=== PATIENT | female | born 1980 | race Caucasian/White ===

== ENCOUNTER 2019-09-05 13:47 | Emergency (ER) | payer SELFPAY ==
[~2019-09-05] VITALS: Ht 165.1 cm; Wt 95.7 kg
[2019-09-05 14:43] VITALS: BP 127/61
[2019-09-05] MEDS ORDERED: CLON0.3T PO (14:56)
--- NOTE | 2019-09-05 14:56 | PHYS DOC ---
Past Medical History Past Medical History: Anxiety, Hypertension Adult General Chief Complaint Chief Complaint: DIZZY/LIGHT HEADED HPI HPI Patient is a 38 year old female with history of hypertension and anxiety who presents with complaint of dizziness and ran out of blood pressure medication. Patient [place] and lost the bottle of Clonidine 0.3 mg that she is supposed to take 3 times a day and didn't take any since yesterday. Patient states she felt dizziness with standing up and had 1 episode of loose stool this morning and thought maybe her blood pressure is elevated but didn't check her blood pressure. Patient denies vomiting, focal neuro deficit, chest pain, shortness of breath. She states she called her primary care physician office but was not able to contact her physician. Review of Systems Review of Systems Constitutional: Denies fever or chills [] Eyes: Denies change in visual acuity, redness, or eye pain [] HENT: Denies nasal congestion or sore throat [] Respiratory: Denies cough or shortness of breath [] Cardiovascular: No additional information not addressed in HPI [] GI: Denies abdominal pain, nausea, vomiting, bloody stools, reports diarrhea [] : Denies dysuria or hematuria [] Musculoskeletal: Denies back pain or joint pain [] Integument: Denies rash or skin lesions [] Neurologic: Denies headache, focal weakness or sensory changes [] Endocrine: Denies polyuria or polydipsia [] All other systems were reviewed and found to be within normal limits, except as documented in this note. Physical Exam Physical Exam Constitutional: Well developed, well nourished, mild distress, non-toxic appearance. [] HENT: Normocephalic, atraumatic. Eyes: PERRLA, EOMI, conjunctiva normal, no discharge. [] Neck: Normal range of motion, no tenderness, supple, no stridor. [] Cardiovascular:Heart rate regular rhythm, no murmur [] Lungs & Thorax: Bilateral breath sounds clear to auscultation [] Abdomen: Bowel sounds normal, soft, no tenderness, no masses, no pulsatile masses. [] Skin: Warm, dry, no erythema, no rash. [] Back: No tenderness, no CVA tenderness. [] Extremities: No tenderness, no cyanosis, no clubbing, ROM intact, no edema. [] Neurologic: Alert and oriented X 3, no focal deficits noted. [] Psychologic: Affect normal, judgement normal, mood normal. [] EKG EKG [] Radiology/Procedures Radiology/Procedures [] Course & Med Decision Making Course & Med Decision Making Evaluation of patient in ER showed 38-year-old male patient presented to ER with complaining of loss of blood pressure medication and needs refill of medication. Blood pressure of 127/80 and heart rate of 73 with unremarkable physical exam. Prescription for creatinine was given and patient was advised to follow-up with her primary care physician. I've spoken with the patient and/or caregivers. I've explained the patient's condition, diagnosis and treatment plan based on information available to me at this time. I've answered the patient's and/or caregivers questions and addressed any concerns. The patient and/or caregivers have a good understanding the patient's diagnosis, condition and treatment plan as can be expected at this point. Vital signs have been stabilized. The patient's condition is stable for discharge from the emergency department. The patient will pursue further outpatient evaluation with her primary care provider or other designated consulting physician as outlined in the discharge instructions. Patient and/or caregivers are agreeable to this plan of care and follow-up instructions have been explained in detail. The patient and/or caregivers have received these instructions in written format and expressed understanding of these discharge instructions. The patient and her caregivers are aware that if any significant change in condition or worsening of symptoms should prompt him to immediately return to this of the closest emergency department. If an emergent department is not readily available I would encourage him to call 911. Ingrid Disclaimer Kennyon Disclaimer This electronic medical record was generated, in whole or in part, using a voice recognition dictation system. Departure Departure Impression: Primary Impression: Medication refill Additional Impression: Dizziness Disposition: HOME, SELF-CARE (at 1453) Condition: STABLE Referrals: NO PCP (PCP) Patient Instructions: Medication Refill, Emergency Department Additional Instructions: Drink plenty of liquids Follow-up with your primary care physician in 2-3 days for refill of medication Return to ER if not getting better Scripts Clonidine Hcl (CLONIDINE HCL) 0.3 Mg Tablet 1 TAB PO TID, #30 TAB 2 Refills Prov: CONRAD COLLADO MD 09/05/19 Problem Qualifiers CONRAD COLLADO MD Sep 05, 2019 14:56
--- NOTE | 2019-09-06 07:32 | EKG ---
[facility] [address] [place] [address] Test Date: 2019-09-05 Test Time: 14:37:41 Pat Name: VIVIENNE DONOVAN Department: Room: Gender: F Ways Operator: : 1980 Requested By: CONRAD COLLADO Order Number: [id number] Reading MD: Measurements Intervals [place] Rate: 73 P: 12 RI: 144 QRS: 34 QRSD: 76 T: 31 QT: 460 QTc: 511 Interpretive Statements SINUS RHYTHM ST & T ABNORMALITY, CONSIDER RECENT INFERIOR MYOCARDIAL OR PERICARDIAL DAMAGE PROLONGED QT ABNORMAL ECG RI6.01 No previous ECG available for comparison
== END 2019-09-05 15:07 | disposition home or self-care (01) ==
LOC: ER 13:47
DX: R42 Dizziness and giddiness (principal); R19.7 Diarrhea, unspecified; Z76.0 Encounter for issue of repeat prescription; F41.9 Anxiety disorder, unspecified; I10 Essential (primary) hypertension
CPT/HCPCS: 93005; 99283

== ENCOUNTER 2021-01-23 17:46 | Emergency (ER) | payer SELFPAY ==
[~2021-01-23] VITALS: Ht 165.1 cm; Wt 103.5 kg
[~2021-01-23 17:46] MED LIST: AMLO-187 PO; CITA40TA5 PO; CLON0.1T PO; CLON0.3T PO; LORA-434 PO
[2021-01-23 20:48] LABS: BILIRUBIN,URINE MODERATE (NEG); CLARITY,URINE CLOUDY; COLOR,URINE RED; NITRITE,URINE POSITIVE (NEG); PROTEIN,URINE >=300 mg/dL (NEG-TRACE)
[2021-01-23 20:56] LABS: BARBITURATES NEG (NEG); BENZODIAZEPINES POS (NEG); CANNABINOIDS NEG (NEG); COCAINE NEG (NEG); METHADONE NEG (NEG); OPIATES NEG (NEG); PHENCYCLIDINE NEG (NEG); RBC,URINE TNTC /HPF (0-2)
[2021-01-23 20:57] LABS: AMPHETAMINE/METHAMPHETAMINE POS (NEG); BACTERIA,URINE MODERATE /HPF (0-FEW)
[2021-01-23 22:09] LABS: BASO # 0.1 x10^3/uL (0.0-0.2); BASO % 1 % (0-3); EOS # 0.3 x10^3/uL (0.0-0.7); EOS % 4 % (0-3); HEMATOCRIT 32.8 % (36.0-47.0); HEMOGLOBIN 11.2 g/dL (12.0-15.5); LYMPH # 2.7 x10^3/uL (1.0-4.8); LYMPH % 34 % (24-48); MEAN CORPUSCULAR HEMOGLOBIN 29 pg (25-35); MEAN CORPUSCULAR HGB CONC 34 g/dL (31-37); MEAN CORPUSCULAR VOLUME 85 fL (79-100); MONO # 0.4 x10^3/uL (0.0-1.1); MONO % 6 % (0-9); NEUT # 4.3 x10^3/uL (1.8-7.7); NEUT % 55 % (31-73); PLATELET COUNT 242 x10^3/uL (140-400); RED BLOOD COUNT 3.86 x10^6/uL (3.50-5.40); RED CELL DISTRIBUTION WIDTH 15.9 % (11.5-14.5); WHITE BLOOD COUNT 7.8 x10^3/uL (4.0-11.0)
[2021-01-23 22:15] LABS: CALCIUM 8.4 mg/dL (8.5-10.1); GFR 61.1; POTASSIUM 3.3 mmol/L (3.5-5.1)
[2021-01-23 22:20] LABS: ALBUMIN 3.5 g/dL (3.4-5.0); ALBUMIN/GLOBULIN RATIO 1.4 (1.0-1.7); TOTAL BILIRUBIN 0.4 mg/dL (0.2-1.0)
[2021-01-23 22:24] LABS: ACETAMIN < 2 mcg/ml (10-30); ETHANOL < 10 mg/dL (0-10); SALIC 3.8 mg/dL (2.8-20.0)
[2021-01-23] MEDS ORDERED: cefTRIAXone IM 1 GM VIAL IM ONE (22:30)
[2021-01-23] MEDS ORDERED: POTASSIUM CHLORIDE 20 MEQ TABLET.ER. PO ONE (22:30)
[2021-01-23] MEDS ORDERED: LIDOCAINE 1% PF 2 ML VIAL. INJ ONE (22:30)
--- NOTE | 2021-01-23 23:10 | PHYS DOC ---
Past Medical History Past Medical History: Anxiety, Depression, DVT, Hypertension, Pancreatitis, Other Additional Past Medical Histor: SI/OD (FRANKMagdalenaALLEN Mckinney MANAGER HEMATOLOGY) Past Surgical History: Cholecystectomy, , Tubal ligation (ALEJANDROALLEN MANAGER HEMATOLOGY) Smoking Status: Current Every Day Smoker Additional Information: 1 PPD Alcohol Use: Heavy (ALEJANDROALLEN Mckinney MANAGER HEMATOLOGY) General Adult EDM: Chief Complaint: ANXIETY/PANIC ATTACK HPI: HPI: Patient is a 40 year old female with history of anxiety, depression, hypertension, hepatitis, who presents to the ED today via EMS from [facility], patient states she was at [facility] when they called the police on her and she was escorted out of [facility]. Patient states she is notoriously known at [facility] for spending long hours in the store, returning items that are not has or stealing. Patient states she has people stalking her. Patient stated this people hired men by the ex boyfriend. Patient says the follow-up from place to place that she has to switch places she lives. She states currently she is homeless and has been living in hotels and she is tired of it. She states she is suicidal and her plan is to jump off a bridge. She states she is very anxious. Denies any homicidal ideations (ALLEN ALLEN MANAGER HEMATOLOGY) Review of Systems: Review of Systems: Constitutional: Denies fever or chills. [] Eyes: Denies change in visual acuity. [] HENT: Denies nasal congestion or sore throat. [] Respiratory: Denies cough or shortness of breath. [] Cardiovascular: Denies chest pain or edema. [] GI: Denies abdominal pain, nausea, vomiting, bloody stools or diarrhea. [] : Denies dysuria. [] Musculoskeletal: Denies back pain or joint pain. [] Integument: Denies rash. [] Neurologic: Denies headache, focal weakness or sensory changes. [] Psychiatric: Reports anxiety, hallucinations (FRANKALLEN Nichols MANAGER HEMATOLOGY) Heart Score: C/O Chest Pain: N/A Risk Factors: Risk Factors: DM, Current or recent (<one month) smoker, HTN, HLP, family history of CAD, obesity. Risk Scores: Score 0 - 3: 2.5% MACE over next 6 weeks - Discharge Home Score 4 - 6: 20.3% MACE over next 6 weeks - Admit for Clinical Observation Score 7 - 10: 72.7% MACE over next 6 weeks - Early Invasive Strategies (ALLEN ALLEN MANAGER HEMATOLOGY) Current Medications: Current Medications Medications (Trade) Dose Ordered Sig/Sheri Start Time Stop Time Status Last Admin Dose Admin Ceftriaxone Sodium (Rocephin Im) 1 gm 1X ONCE 01/23/21 22:30 01/23/21 22:31 DC 01/23/21 22:33 1 GM Lidocaine HCl (Xylocaine-Mpf 1% 2ml Vial) 2 ml 1X ONCE 01/23/21 22:30 01/23/21 22:31 DC 01/23/21 22:34 2 ML Potassium Chloride (Klor-Con) 40 meq 1X ONCE 01/23/21 22:30 01/23/21 22:31 DC 01/23/21 22:33 40 MEQ (ALLEN ALLEN M MANAGER HEMATOLOGY) Allergies: Allergies: Allergies Coded Allergies Type Severity Reaction Last Updated Verified No Known Drug Allergies 10/21/19 No (ALLEN ALLEN M MANAGER HEMATOLOGY) Physical Exam: PE: Constitutional: Well developed, well nourished, no acute distress, non-toxic appearance. [] HENT: Normocephalic, atraumatic, bilateral external ears normal, oropharynx moist, no oral exudates, nose normal. [] Eyes: PERRLA, EOMI, conjunctiva normal, no discharge. [] Neck: Normal range of motion, no tenderness, supple, no stridor. [] Cardiovascular:Heart rate regular rhythm, no murmur [] Lungs & Thorax: Bilateral breath sounds clear to auscultation [] Abdomen: Bowel sounds normal, soft, no tenderness, no masses, no pulsatile masses. [] Skin: Warm, dry, no erythema, no rash. [] Back: No tenderness, no CVA tenderness. [] Extremities: No tenderness, no cyanosis, no clubbing, ROM intact, no edema. [] Neurologic: Alert and oriented X 3, normal motor function, normal sensory function, no focal deficits noted. [] Psychologic: Flat affect, speaking very fast (ALLEN ALLEN M MANAGER HEMATOLOGY) Current Patient Data: Labs: Laboratory Tests Test 01/23/21 20:42 6/9/21 21:45 Urine Collection Type Unknown Urine Color Red Urine Clarity Cloudy Urine pH 5.0 (<5.0-8.0) Urine Specific [place] >=1.030 (1.000-1.030) Urine Protein >=300 mg/dL (NEG-TRACE) Urine Glucose (UA) Negative mg/dL (NEG) Urine Ketones (Stick) 15 mg/dL (NEG) Urine Blood Large (NEG) Urine Nitrite Positive (NEG) Urine Bilirubin Moderate (NEG) Urine Urobilinogen Dipstick 1.0 mg/dL (0.2 mg/dL) Urine Leukocyte Esterase Moderate (NEG) Urine RBC Tntc /HPF (0-2) Urine WBC 11-20 /HPF (0-4) Urine Squamous Epithelial Cells Many /LPF Urine Bacteria Moderate /HPF (0-FEW) Urine Mucus Marked /LPF Urine Opiates Screen Neg (NEG) Urine Methadone Screen Neg (NEG) Urine Barbiturates Neg (NEG) Urine Phencyclidine Screen Neg (NEG) Urine Amphetamine/Methamphetamine Pos (NEG) Urine Benzodiazepines Screen Pos (NEG) Urine Cocaine Screen Neg (NEG) Urine Cannabinoids Screen Neg (NEG) Urine Ethyl Alcohol Neg (NEG) White Blood Count 7.8 x10^3/uL (4.0-11.0) Red Blood Count 3.86 x10^6/uL (3.50-5.40) Hemoglobin 11.2 g/dL (12.0-15.5) L Hematocrit 32.8 % (36.0-47.0) L Mean Corpuscular Volume 85 fL (79-100) Mean Corpuscular Hemoglobin 29 pg (25-35) Mean Corpuscular Hemoglobin Concent 34 g/dL (31-37) Red Cell Distribution Width 15.9 % (11.5-14.5) H Platelet Count 242 x10^3/uL (140-400) Neutrophils (%) (Auto) 55 % (31-73) Lymphocytes (%) (Auto) 34 % (24-48) Monocytes (%) (Auto) 6 % (0-9) Eosinophils (%) (Auto) 4 % (0-3) H Basophils (%) (Auto) 1 % (0-3) Neutrophils # (Auto) 4.3 x10^3/uL (1.8-7.7) Lymphocytes # (Auto) 2.7 x10^3/uL (1.0-4.8) Monocytes # (Auto) 0.4 x10^3/uL (0.0-1.1) Eosinophils # (Auto) 0.3 x10^3/uL (0.0-0.7) Basophils # (Auto) 0.1 x10^3/uL (0.0-0.2) Sodium Level 143 mmol/L (136-145) Potassium Level 3.3 mmol/L (3.5-5.1) L Chloride Level 108 mmol/L (98-107) H Carbon Dioxide Level 24 mmol/L (21-32) Anion Gap 11 (6-14) Blood Urea Nitrogen 12 mg/dL (7-20) Creatinine 1.0 mg/dL (0.6-1.0) Estimated GFR (Cockcroft-Gault) 61.1 BUN/Creatinine Ratio 12 (6-20) Glucose Level 127 mg/dL (70-99) H Calcium Level 8.4 mg/dL (8.5-10.1) L Total Bilirubin 0.4 mg/dL (0.2-1.0) Aspartate Amino Transferase (AST) 19 U/L (15-37) Alanine Aminotransferase (ALT) 31 U/L (14-59) Alkaline Phosphatase 60 U/L (46-116) Total Protein 6.0 g/dL (6.4-8.2) L Albumin 3.5 g/dL (3.4-5.0) Albumin/Globulin Ratio 1.4 (1.0-1.7) Lipase 54 U/L (73-393) L Salicylates Level 3.8 mg/dL (2.8-20.0) Salicylate Last Dose Date Salicylate Last Dose Time Acetaminophen Level < 2 mcg/ml (10-30) L Acetaminophen Last Dose Date Acetaminophen Last Dose Time Ethyl Alcohol Level < 10 mg/dL (0-10) SARS-CoV-2 Antigen (Rapid) Negative (NEGATIVE) Laboratory Tests 01/23/21 21:45 Laboratory Tests 01/23/21 21:45 Vital Signs: Vital Signs Date Time Temp Pulse Resp B/P (MAP) Pulse Ox O2 Delivery O2 Flow Rate FiO2 01/23/21 19:54 82 16 113/58 (76) 100 Room Air 01/23/21 19:28 98.7 98.7 (ALLEN ALLEN APRN) EKG: EKG: [] (ALLEN ALLEN APRN) Radiology/Procedures: Radiology/Procedures: [] (ALLEN ALLEN APRN) Course & Med Decision Making: Course & Med Decision Making Pertinent Labs and Imaging studies reviewed. (See chart for details) This is a 40-year-old female patient presenting to the ED today with anxiety, suicidal ideations, hallucinations. See HPI. CBC with no acute findings, CMP with potassium of 3.3, oral potassium replacement given in the ED. UA positive for UTI, given Rocephin. Dyllan from the Pat team working on patient placement. Patient has been on one-to-one since arrival to the ED [address] Gamez (ALLEN ALLEN APRN) Dragon Disclaimer: Ingrid Disclaimer: This electronic medical record was generated, in whole or in part, using a voice recognition dictation system. (ALLEN ALLEN APRN) Departure Departure Impression: Primary Impression: Anxiety Additional Impressions: Hallucinations Suicidal ideations [facility] Condition: STABLE Referrals: NO PCP (PCP) ALLEN ALLEN APRN Jan 23, 2021 23:10 GOYO GAMEZ MD Jan 26, 2021 06:36
[2021-01-24 03:25] VITALS: BP 122/69
--- NOTE | 2021-01-24 15:44 | NUR ---
IP: Attempted to contact pt concerning covid test. No answer, left a voicemail to return the call.
== END 2021-01-24 04:37 ==
LOC: ER 17:46 → EEVIPCON 17:46 → ER 01-24 04:37
DX: R45.851 Suicidal ideations (principal); Z20.822 Contact with and (suspected) exposure to COVID-19; F41.9 Anxiety disorder, unspecified; R44.3 Hallucinations, unspecified; F10.20 Alcohol dependence, uncomplicated; Y90.0 Blood alcohol level of less than 20 mg/100 ml; I10 Essential (primary) hypertension; Z86.718 Personal history of other venous thrombosis and embolism; F17.200 Nicotine dependence, unspecified, uncomplicated; Z59.0 Homelessness
CPT/HCPCS: 80053; 80307; 80329; 81001; 83690; 85025; 87086; 87426; 96372; 99285; G0480; J0696; J3490; U0003; U0005

== ENCOUNTER 2021-07-16 12:36 | Emergency (ER) | payer SELFPAY ==
[~2021-07-16] VITALS: Ht 165.1 cm; Wt 95.5 kg
[~2021-07-16 12:36] MED LIST changes: -CITA40TA5 PO; +CITA40TA6 PO
[2021-07-16] MEDS: IV NORMAL SALINE 1000ML BAG 1,000 ML IV ONE (13:27)
[2021-07-16] MEDS: ONDANSETRON PF 4 MG/2 ML VIAL. IVP ONE (13:27)
[2021-07-16 13:28] LABS: BASO # 0.1 x10^3/uL (0.0-0.2); BASO % 1 % (0-3); EOS # 0.1 x10^3/uL (0.0-0.7); EOS % 1 % (0-3); HEMATOCRIT 39.1 % (36.0-47.0); HEMOGLOBIN 12.7 g/dL (12.0-15.5); LYMPH # 1.3 x10^3/uL (1.0-4.8); LYMPH % 11 % (24-48); MEAN CORPUSCULAR HEMOGLOBIN 27 pg (25-35); MEAN CORPUSCULAR HGB CONC 32 g/dL (31-37); MEAN CORPUSCULAR VOLUME 83 fL (79-100); MONO # 0.4 x10^3/uL (0.0-1.1); MONO % 3 % (0-9); NEUT % 84 % (31-73); PLATELET COUNT 319 x10^3/uL (140-400); RED BLOOD COUNT 4.72 x10^6/uL (3.50-5.40); RED CELL DISTRIBUTION WIDTH 19.4 % (11.5-14.5); WHITE BLOOD COUNT 11.9 x10^3/uL (4.0-11.0)
[2021-07-16] MEDS: cloNIDine HCL 0.1 MG TABLET PO ONE (13:28)
[2021-07-16 13:36] LABS: CALCIUM 9.2 mg/dL (8.5-10.1); GFR 61.1; POTASSIUM 3.9 mmol/L (3.5-5.1)
[2021-07-16 13:36] LABS: INFLUENZA A PATIENT NEGATIVE (NEGATIVE); INFLUENZA B PATIENT NEGATIVE (NEGATIVE)
[2021-07-16 13:41] LABS: ALBUMIN 3.9 g/dL (3.4-5.0); ALBUMIN/GLOBULIN RATIO 1.1 (1.0-1.7); TOTAL BILIRUBIN 1.3 mg/dL (0.2-1.0); TOTAL PROTEIN 7.4 g/dL (6.4-8.2)
--- NOTE | 2021-07-16 13:44 | PHYS DOC ---
Past Medical History Past Medical History: Anxiety, Depression, DVT, Hypertension, Pancreatitis, Other Additional Past Medical Histor: SI/OD Past Surgical History: Cholecystectomy, , Tubal ligation Smoking Status: Current Every Day Smoker Alcohol Use: None General Adult EDM: Chief Complaint: NAUSEA/VOMITING/DIARRHEA HPI: HPI: Patient is a 40-year-old female who presents to the emergency department complaining of being out of her blood pressure medication clonidine 0.2 mg which she takes 3 times a day. Patient is requesting a refill of her medication for blood pressure. Patient states she has been out of her medication for 2 days. Denies chest pains, shortness of breath, chest palpitations, headaches, nasal or chest congestion. Patient also states she is homeless and would like to rest in the emergency department for a while claiming she has had nausea without vomiting today reports several diarrhea spells with loose brown stool, denies seeing any blood in her stool or in her urine. Patient denies receiving the full Covid vaccine series, reports she took the first dose of Pfizer about 2 months ago but never followed up for second dose. Patient denies receiving the flu vaccine for this year. Patient denies abdominal pain, patient describes abdominal feelings of fullness. Patient denies fever or chills. Patient reports her last diarrhea spell was approximately 1 hour prior to arrival. Patient reports she does smoke cigarettes, denies alcohol use however does report methamphetamine use, reports she snorted some methamphetamine yesterday evening to help her sleep. Patient denies vaginal discharge, increased urinary frequency, denies urinary pressure, denies STI concerns. Patient denies other physical complaints or physical concerns. Review of Systems: Review of Systems: 14 body systems of review of systems have been reviewed. See HPI for pertinent positives and negative responses, otherwise all other systems are negative, nonpertinent or noncontributory. Constitutional: Negative except as outlined in HPI above. Skin: Negative except as outlined in HPI above. Eyes: Negative except as outlined in HPI above. HENT: Negative except as outlined in HPI above. Respiratory: Negative except as outlined in HPI above. Cardiovascular: Negative except as outlined in HPI above. GI: Negative except as outlined in HPI above. : Negative except as outlined in HPI above. Musculoskeletal: Negative except as outlined in HPI above. Integument: Negative except as outlined in HPI above. Neurologic: Negative except as outlined in HPI above. Endocrine: Negative except as outlined in HPI above. Lymphatic: Negative except as outlined in HPI above. Psychiatric: Negative except as outlined in HPI above. Heart Score: C/O Chest Pain: No Risk Factors: Risk Factors: DM, Current or recent (<one month) smoker, HTN, HLP, family history of CAD, obesity. Risk Scores: Score 0 - 3: 2.5% MACE over next 6 weeks - Discharge Home Score 4 - 6: 20.3% MACE over next 6 weeks - Admit for Clinical Observation Score 7 - 10: 72.7% MACE over next 6 weeks - Early Invasive Strategies Current Medications: Current Medications Medications (Trade) Dose Ordered Sig/Sheri Start Time Stop Time Status Last Admin Dose Admin Clonidine HCl (Catapres) 0.2 mg 1X ONCE 07/16/21 13:00 07/16/21 13:01 DC 07/16/21 13:28 0.2 MG Ondansetron HCl (Zofran) 4 mg 1X ONCE 07/16/21 13:00 07/16/21 13:01 DC 07/16/21 13:27 4 MG Sodium Chloride 1,000 ml @ 1,000 mls/hr 1X ONCE 07/16/21 13:00 07/16/21 13:59 07/16/21 13:27 1,000 MLS/HR Allergies: Allergies: Allergies Coded Allergies Type Severity Reaction Last Updated Verified No Known Drug Allergies 10/21/19 No Physical Exam: PE: Constitutional: Well developed, well nourished, no acute distress, non-toxic appearance. 40-year-old female in no apparent distress. HENT: Normocephalic, atraumatic. Eyes: Conjunctiva normal, no discharge. Neck: Normal range of motion, no stridor. Cardiovascular: No cyanosis appreciated, distal cap refill less than 2 seconds. Lungs & Thorax: Patient is in no respiratory distress, no audible adventitious lung sounds appreciated. Abdomen: Nontender, no abnormalities noted. Skin: Warm, dry, no erythema, no rash. Back: No tenderness, no deformities. Extremities: No tenderness, no cyanosis, no clubbing, ROM intact, no edema. Neurologic: Alert and oriented X 3, normal motor function, normal sensory function, no focal deficits noted. Psychologic: Affect normal, judgement normal, mood normal. Current Patient Data: Labs: Laboratory Tests Test 07/16/21 13:05 07/16/21 13:15 SARS-CoV-2 Antigen (Rapid) Negative (NEGATIVE) White Blood Count 11.9 x10^3/uL (4.0-11.0) H Red Blood Count 4.72 x10^6/uL (3.50-5.40) Hemoglobin 12.7 g/dL (12.0-15.5) Hematocrit 39.1 % (36.0-47.0) Mean Corpuscular Volume 83 fL (79-100) Mean Corpuscular Hemoglobin 27 pg (25-35) Mean Corpuscular Hemoglobin Concent 32 g/dL (31-37) Red Cell Distribution Width 19.4 % (11.5-14.5) H Platelet Count 319 x10^3/uL (140-400) Neutrophils (%) (Auto) 84 % (31-73) H Lymphocytes (%) (Auto) 11 % (24-48) L Monocytes (%) (Auto) 3 % (0-9) Eosinophils (%) (Auto) 1 % (0-3) Basophils (%) (Auto) 1 % (0-3) Neutrophils # (Auto) 10.0 x10^3/uL (1.8-7.7) H Lymphocytes # (Auto) 1.3 x10^3/uL (1.0-4.8) Monocytes # (Auto) 0.4 x10^3/uL (0.0-1.1) Eosinophils # (Auto) 0.1 x10^3/uL (0.0-0.7) Basophils # (Auto) 0.1 x10^3/uL (0.0-0.2) Laboratory Tests 07/16/21 13:15 Vital Signs: Vital Signs Date Time Temp Pulse Resp B/P (MAP) Pulse Ox O2 Delivery O2 Flow Rate FiO2 07/16/21 13:28 66 175/79 07/16/21 13:10 20 100 Room Air 07/16/21 12:40 97.5 97.5 EKG: EKG: [] Radiology/Procedures: Radiology/Procedures: [] Course & Med Decision Making: Course & Med Decision Making And wrappedPertinent Labs and Imaging studies reviewed. (See chart for details) 40-year-old female, vital signs reviewed, presents to the emergency department concerning needing a refill for her blood pressure medication clonidine. Patient also reports she is homeless and would like somewhere to sleep for a while. Patient then went on to report nausea without vomiting, diarrhea spells this morning without blood in her stool and without abdominal pain. Patient's blood pressure reviewed, 217/89, will give patient's home dose of clonidine 0.2 mg p.o. Will start saline lock IV, 1 L normal saline, 4 mg Zofran for reported nausea, CBC, CMP, lipase. Urinalysis assay with test. Rapid COVID-19 testing with PCR, rapid flu testing. Patient does not have abdominal pain or discomfort, will defer imaging at this time pending lab results. Patient's rapid Covid testing flu testing negative, PCR testing pending, blood pressure after p.o. clonidine given, 191/78, patient's CBC is CMP labs along with lipase unremarkable, no vomiting or diarrhea during ER stay, patient reports ongoing nausea, will give ODT Zofran prior to discharge, discussed with patient staying well-hydrated, will prescribe 30-day supply of blood pressure medication, short supply nausea medicine, strict follow-up with primary care soon for ongoing blood pressure management, return ER precautions and concerns, patient gave verbal understanding of and is amenable to ED discharge planning. Diagnosis encounter for medication refill, nausea. Hypertension. Discussed with the patient all findings and diagnostic testing as well as the need to follow-up with their primary care provider for further evaluation and treatment or return to the ED if any new or worsening symptoms. Strict return precautions were also discussed at length, the patient voiced understanding and agreement with the discharge planning. The patient was nontoxic in appearance, in no apparent distress, and hemodynamically stable at the time of disposition. Dragon Disclaimer: [employer] Disclaimer: This electronic medical record was generated, in whole or in part, using a voice recognition dictation system. Departure Departure Impression: Primary Impression: Prescription refill Additional Impressions: Hypertension Qualified Codes: I10 - Essential (primary) hypertension Nausea Disposition: HOME / SELF CARE / HOMELESS Condition: GOOD Referrals: NO PCP (PCP) Patient Instructions: Hypertension, Nausea, Adult Additional Instructions: You were seen today in the emergency department for a prescription refill of her clonidine. You also complained of nausea and diarrhea, you did not have any vomiting or diarrhea during your ER stay, you were treated with 1 L of normal saline along with Zofran for nausea. He had reported relief with this, you are also given 0.2 mg of clonidine for your hypertension presentation. Your blood pressure did decrease during your ER stay, I am prescribing you 1 months worth of blood pressure medication and a few Zofran for any returning nausea. Please follow-up with your primary care physician soon for ongoing blood pressure management. Return to the emergency department for worsening symptoms or other concerns. Thank you for visiting our Emergency Department. It was a pleasure taking care of you today in the emergency department and we appreciate you trusting us with your care. If any additional problems come up don't hesitate to return to visit us. Please follow up with your primary care provider so they can plan additional care if needed and know about the problem that you had. If symptoms worsen come back to the Emergency Department. Any concerning symptoms that start such as chest pain, shortness of air, weakness or numbness on one side of the body, running high fevers or any other concerning symptoms return to the ER. EMERGENCY DEPARTMENT GENERAL DISCHARGE INSTRUCTIONS Thank you for coming to [facility] Emergency Department (ED) today and trusting us with you care. We trust that you had a positive experience in our Emergency Department. If you wish to speak to the department management, you may call the Director at [phone]. YOUR FOLLOW UP INSTRUCTIONS ARE FOLLOWS: 1. Do you have a private Doctor? If you do not have a private doctor, please ask for a resource list of physicians or clinics that may be able to assist you with follow up care. 2. The Emergency Physicain has interpreted your x-rays. The X-Ray specialist w ill also review them. If there is a change in the findings, you will be notified in 48 hours when at all possible. 3. A lab test or culture has been done, your results will be reviewed and you will be notified if you need a change in treatment. ADDITIONAL INSTRUCTIONS AND INFORMATION: 1. Your care today has been supervised by a physician who is specially trained in emergency care. Many problems require more than one evaluation for a complete diagnosis and treatment. We recommend that you schedule your follow up appointment as recommended to ensure complete treatment of you illness or injury. If you are unable to obtain follow up care and continue to have a problem, or if your condition worsens, we recommend that you return to the ED. 2. We are not able to safely determine your condition over the phone nor are we able to give sound medical advice over the phone. For these safety reasons, if you call for medical advice we will ask you to come to the ED for further evaluation. 3. If you have any questions regarding these discharge instructions please call the ED at [phone]. SAFETY INFORMATION: In the interest of safety, wellness, and injury prevention; we encourage you to wear your sealbelt, if you smoke; quite smoking, and we encourage family to use a protective helmet for bicycling and other sporting events that present an increased risk for head injury. IF YOUR SYMPTOMS WORSEN OR NEW SYMPTOMS DEVELOP, OR YOU HAVE CONCERNS ABOUT YOUR CONDITION; OR IF YOUR CONDITION WORSENS WHILE YOU ARE WAITING FOR YOUR FOLLOW UP APPOINTMENT; EITHER CONTACT YOUR PRIMARY CARE DOCTOR, THE PHYSICIAN WHOSE NAME AND NUMBER YOU WERE GIVEN, OR RETURN TO THE ED IMMEDIATELY. Scripts Clonidine Hcl (CLONIDINE HCL) 0.2 Mg Tablet 1 TAB PO TID for hypertension for 30 Days, #90 TAB 0 Refills Prov: JES HOLLINS APRN 07/16/21 Ondansetron (ONDANSETRON ODT) 4 Mg Tab.rapdis 1 TAB PO PRN Q6-8HRS for nausea, #16 TAB 0 Refills Prov: JES HOLLINS APRN 07/16/21 JES HOLLINS APRN Jul 16, 2021 13:44
[2021-07-16 15:03] LABS: BILIRUBIN,URINE NEGATIVE (NEG); CLARITY,URINE CLEAR; COLOR,URINE YELLOW; NITRITE,URINE NEGATIVE (NEG); PROTEIN,URINE NEGATIVE (NEG-TRACE)
[2021-07-16 15:24] LABS: BACTERIA,URINE FEW /HPF (0-FEW)
[2021-07-16 15:28] LABS: RBC,URINE 0 /HPF (0-2)
[2021-07-16 15:52] VITALS: BP 198/91
[2021-07-16] MEDS ORDERED: ONDA4TAB12 PO (17:09)
[2021-07-16] MEDS ORDERED: CLON0.2T PO (17:09)
[2021-07-16] MEDS: ONDANSETRON ODT 4 MG TAB.RAPDIS. PO ONE (17:20)
--- NOTE | 2021-07-17 17:16 | NUR ---
IP:Attempted to contact pt concerning covid results. No answer, left a voicemail to return the call.
== END 2021-07-16 17:30 | disposition home or self-care (01) ==
LOC: ER 12:36
DX: I10 Essential (primary) hypertension (principal); Z20.822 Contact with and (suspected) exposure to COVID-19; Z76.0 Encounter for issue of repeat prescription; F32.9 Major depressive disorder, single episode, unspecified; F41.9 Anxiety disorder, unspecified; F15.90 Other stimulant use, unspecified, uncomplicated; F17.210 Nicotine dependence, cigarettes, uncomplicated; Z86.718 Personal history of other venous thrombosis and embolism
CPT/HCPCS: 36415; 80053; 81001; 81025; 83690; 85025; 87426; 87804; 96361; 96374; 99285; J2405; J7030; U0003; U0005